=== PATIENT | male | born 1945 | race Caucasian/White ===

== ENCOUNTER 2019-10-19 09:34 | Observation (INO) | payer MEDICARE, OTHER ==
[~2019-10-19] VITALS: Ht 177.8 cm; Wt 102.7 kg
[~2019-10-19 09:34] MED LIST: ASPI-496 PO; CHOL500015 PO; FENTANYL PF 250 MCG/5ML ONE; NAPR220C2 PO; TELM1TAB PO; ZOLP10TA5 PO
[2019-10-19] MEDS ORDERED: LACTATED RINGERS 1,000 ML IV SCH (09:43)
[2019-10-19] MEDS ORDERED: CEFAZOLIN 1,000 MG ONE (09:53)
[2019-10-19] MEDS ORDERED: ROCURONIUM 10MG/ML,5ML ONE (09:53)
[2019-10-19] MEDS ORDERED: GLYCOPYRROLATE 0.2MG/1ML, 5ML ONE (09:53)
[2019-10-19] MEDS ORDERED: NEOSTIGMINE 1 MG/ML, 10ML ONE (09:53)
[2019-10-19] MEDS ORDERED: PROPOFOL 10 MG/ML, 20ML ONE (09:53)
[2019-10-19] MEDS ORDERED: ACETAMINOPHEN 500 MG TABLET PO ONE (10:00)
[2019-10-19] MEDS ORDERED: GABAPENTIN 300 MG CAPSULE PO ONE (10:00)
[2019-10-19 10:02] VITALS: BP 159/99
[2019-10-19] MEDS ORDERED: ROPIvacaine/PF 0.2%, 20 ML ONE (10:11)
[2019-10-19] MEDS ORDERED: FENTANYL PF 100 MCG/2ML IV PRN (10:30)
[2019-10-19] MEDS ORDERED: ONDANSETRON 2MG/ML, 2ML IV PRN (10:30)
[2019-10-19] MEDS ORDERED: LABETALOL 5MG/ML, 20ML IV PRN (10:30)
[2019-10-19] MEDS ORDERED: hydrALAzine 20 MG/ML, 1ML IV PRN (10:30)
[2019-10-19] MEDS ORDERED: MEPERIDINE/PF 25MG/ML,1ML IVPush PRN (10:30)
[2019-10-19] MEDS ORDERED: MORPHINE SULFATE 4 MG/ML, 1ML IVPush PRN ×2 (10:30→13:30)
[2019-10-19] MEDS ORDERED: TRANEXAMIC ACID 100 MG/ML, 10ML ONE ×2 (11:00)
[2019-10-19] MEDS ORDERED: FENTANYL PF 100 MCG/2ML ONE (12:35)
[2019-10-19] MEDS ORDERED: KETOROLAC 30 MG/1 ML ONE ×2 (12:51→13:55)
[2019-10-19] MEDS ORDERED: BUPIVACAINE/PF 0.25% ONE (12:52)
[2019-10-19] MEDS ORDERED: EPINEPHRINE 1 MG/ML, 1ML ONE (12:52)
[2019-10-19] MEDS ORDERED: HYDROmorphone 1 MG/ML, 1ML VIAL ONE (13:25)
[2019-10-19] MEDS: HYDROmorphone 2 MG/ML, 1ML IVPush PRN ×5 (13:27→14:10)
[2019-10-19] MEDS ORDERED: KETOROLAC 30 MG/1 ML IV SCH (13:30)
[2019-10-19] MEDS ORDERED: ONDANSETRON 4 MG TABLET PO PRN (13:30)
[2019-10-19] MEDS: OXYcodone IR 5MG TABLET PO SCH ×2 (13:30→19:30)
[2019-10-19] MEDS ORDERED: SENNA/DOCUSATE TABLET PO PRN (13:30)
[2019-10-19] MEDS ORDERED: DIPHENHYDRAMINE 25 MG CAPSULE PO PRN (13:30)
[2019-10-19] MEDS ORDERED: OXYcodone 5 MG/5 ML ORAL.SOL UDC ONE ×2 (13:36→14:12)
[2019-10-19] MEDS: OXYcodone 5 MG/5 ML ORAL.SOL UDC PO PRN ×2 (13:37→14:13)
[2019-10-19] MEDS: D5%-0.45% NACL 1,000 ML IV SCH ×2 (16:34→23:24)
[2019-10-19] MEDS: ACETAMINOPHEN 500 MG TABLET PO SCH ×2 (16:48→21:54)
[2019-10-19 18:24] VITALS: BP 124/70
[2019-10-19] MEDS: CEFAZOLIN PMX 1GM/50ML 50 ML IVPB SCH (19:34)
[2019-10-19] MEDS ORDERED: [UNRECOGNIZED DRUG - OTHER] PO SCH (21:00)
[2019-10-19] MEDS: KETOROLAC 30 MG/1 ML IV SCH (21:54)
[2019-10-19] MEDS: DOCUSATE 100 MG CAPSULE PO SCH (21:54)
[2019-10-19 23:41] VITALS: BP 122/76
[2019-10-20] MEDS: OXYcodone IR 5MG TABLET PO SCH ×2 (01:30→07:55)
[2019-10-20 03:40] VITALS: BP 130/68
[2019-10-20] MEDS: CEFAZOLIN PMX 1GM/50ML 50 ML IVPB SCH (03:42)
[2019-10-20] MEDS: OXYcodone 5 MG/5 ML ORAL.SOL UDC PO PRN (03:45)
[2019-10-20] MEDS: ACETAMINOPHEN 500 MG TABLET PO SCH ×2 (03:48→10:19)
[2019-10-20] MEDS ORDERED: ASPIRIN 325 MG TABLET PO SCH (06:00)
[2019-10-20] MEDS: KETOROLAC 30 MG/1 ML IV SCH (06:36)
[2019-10-20 07:32] VITALS: BP 135/75
[2019-10-20] MEDS: DOCUSATE 100 MG CAPSULE PO SCH (07:55)
[2019-10-20] MEDS: D5%-0.45% NACL 1,000 ML IV SCH (09:24)
== END 2019-10-20 10:57 | disposition home or self-care (01) ==
LOC: OUT 09:34 → ORIP 13:24 → 4NE 15:07 → DCLOUNGE 10-20 10:50
PROVIDERS: ADMIT Orthopaedic Surgery; ATTEND Orthopaedic Surgery
DX: M17.12 Unilateral primary osteoarthritis, left knee (principal); G47.30 Sleep apnea, unspecified; I10 Essential (primary) hypertension; M19.90 Unspecified osteoarthritis, unspecified site; F10.10 Alcohol abuse, uncomplicated; Z68.31 Body mass index [BMI] 31.0-31.9, adult; Z79.82 Long term (current) use of aspirin; Z87.891 Personal history of nicotine dependence
CPT/HCPCS: 27447; 73560; 87081; 96365; 96366; 96375; 96376; 97162; C1713; C1776; G0378; J0171; J0690; J1170; J1885; J2704; J2710; J2795; J3010; J3490; J7120; Q0162